=== PATIENT | male | born 1945 | race Caucasian/White ===

== ENCOUNTER 2020-06-07 09:30 | Outpatient (CLI) | payer MEDICARE ==
[~2020-06-07 09:30] MED LIST: ASPI-963 PO; CHOL20002 PO; CLOP75TA52 PO; CO Q-10 PO; EZET10TA70 PO; MAGNESIUM PO; NIACIN PO; RED600TA PO; STATIN PO; VITAMIN C PO; VITAMIN E PO; ZINC PO
== END 2020-06-07 23:59 | disposition home or self-care (01) ==
LOC: LAB 09:30
PROVIDERS: ATTEND Internal Medicine Cardiovascular Disease
DX: Z02.9 Encounter for administrative examinations, unspecified (principal)